=== PATIENT | male | born 1990 | race Caucasian/White ===

== ENCOUNTER 2016-11-28 15:06 | Emergency (ER) | payer MEDICAID ==
[~2016-11-28] VITALS: Ht 175.3 cm; Wt 84.1 kg
[2016-11-28 15:14] VITALS: BP 119/75; RESP 16; O2SAT 98
--- NOTE | 2016-11-28 17:44 | ED.REPORT ---
HPI-Ear Pain/Problem/FB Date of Service Nov 28, 2016 ED Provider: Amilcar Phipps PA-C Marco is a 26-year-old male with history of epilepsy presenting with a chief complaint of right ear pain. He reports a one-week history of pain in his right ear pain and pressure associated with right-sided headache, dizziness, sore throat. Initially was associated with rhinorrhea and cough which has subsided. Denies fever, sinus pain, abdominal pain, vomiting, diarrhea, neurological symptoms. Nursing Notes Stated Complaint: HEADACHE, DIZZINESS, RIGHT EAR PAIN Chief Complaint: ENT & Mouth Nursing Notes Reviewed: Yes Allergies: Uncoded Allergies: PHENOBARBITOL (Allergy, Unknown, Unknown, 11/28/16) Scheduled Amoxicillin (Amoxicillin) 500 Mg Capsule 500 MG PO BID General Time Seen by MD: 17:28 Chief Complaint Ear problem right Past Medical History Past Medical History Epilepsy Review of Systems Review of Systems Note: Negative unless stated otherwise in history of present illness Physical Exam General: Well appearing, well developed, well nourished, no acute distress. Head: Atraumatic, normocephalic. No mastoid tenderness. Eyes: No scleral icterus or injection. No discharge. PERRL. Vision grossly intact. Ears: Pinna and tragus nontender with manipulation. External auditory canal patent, atraumatic and without discharge. Tympanic injected, shiny and translucent with small amount of fluid bilaterally. No perforation. Hearing grossly intact. Nose: Symmetrical, nares patent without discharge. No frontal or maxillary sinus tenderness. Mouth/pharynx: normal dentition, mucus membranes moist. Tonsils 2+ and symmetrical, uvula midline. Pharynx noninjected, no cobblestoning or discharge. Voice clear. Neck: No tenderness or lymphadenopathy. Trachea midline. Respiratory: No respiratory distress, no increased work of breathing. Speaks in complete sentences. Skin: Warm and dry. Neurological: Grossly nonfocal. Psychological: alert and oriented. Speech appropriate, linear and logical. Behavior appropriate. Initial Vital Signs Vital Signs (First) Date Time Temp Pulse Resp B/P Pulse Ox O2 Delivery O2 Flow Rate FiO2 11/28/16 15:14 37.2 88 16 119/75 98 Room Air Re-Eval/Medical Decision Med Decision/Clinical Course 26-year-old male history of epilepsy presenting with upper respiratory symptoms as well as right ear pain and headache. Physical examination reveals injection to bilateral tympanic membranes as well as serous fluid. I think this is otitis media. No indication of otitis externa, no mastoid or sinus tenderness. Prescribed amoxicillin, advised [id number] analgesia provided primary care follow-up and emergency return precautions. Patient verbalizes understanding of a and consent to the plan Discharge & Departure Primary Impression: Otitis media Otitis media type: serous Laterality: bilateral Chronicity: acute Recurrence: not specified as recurrent Qualified Code: H65.03 - Acute serous otitis media, bilateral Disposition: Home Discharge Condition All VS Reviewed: Yes Condition: Stable Patient Instructions: Otitis Media (ED) Additional Instructions: History and physical suggests that you have middle ear infections, worse on the right than on the left. We will treat this with amoxicillin 500 mg to be taken twice a day for 7 days. The pain is best treated with 400 mg of ibuprofen (Advil , Motrin) every 6 hours, or 1000 mg of acetaminophen (Tylenol) every 6 hours. These drugs can be taken at the same time for more severe pain. He will likely also benefit from [id number] fluticasone (Flonase) which is a nasal steroid. This will reduce inflammation and allow your ears to drain better. I will give you a referral for primary care follow-up. Please contact them if you are symptoms have not resolved in 5-7 days. Return to emergency department for new or worsening symptoms including increasing pain, fever, worsening dizziness or weakness. Referrals: [facility] EDSupervising Provider for APC: Mackenzie Parsons MD copies to: [facility] Amilcar Phipps PA-C Nov 28, 2016 17:44
[2016-11-28] MEDS ORDERED: AMOX500C2 PO (17:46)
== END 2016-11-28 17:50 | disposition home or self-care (01) ==
LOC: SED 15:06
DX: H65.03 Acute serous otitis media, bilateral (principal); R51 Headache; R42 Dizziness and giddiness; J02.9 Acute pharyngitis, unspecified; G40.909 Epilepsy, unspecified, not intractable, without status epilepticus